=== PATIENT | female | born 1975 | race Caucasian/White ===

== ENCOUNTER 2016-11-13 15:22 | Emergency (ER) | payer MEDICAID | END 2016-11-13 20:49 | disposition home or self-care (01) | LOC: D.ER 15:22 | DX: J11.1 Influenza due to unidentified influenza virus with other respiratory manifestations (principal); J01.90 Acute sinusitis, unspecified; I10 Essential (primary) hypertension; F32.9 Major depressive disorder, single episode, unspecified; M79.7 Fibromyalgia; F17.200 Nicotine dependence, unspecified, uncomplicated ==